=== PATIENT | male | born 1980 | race Caucasian/White ===

== ENCOUNTER → 2017-02-13 | Outpatient (CLI) | payer BC ==
--- NOTE | 2017-02-13 09:41 | FL ---
EXAMINATION TYPE: FL UGI w esophagus DATE OF EXAM: 02/13/2017 COMPARISON: NONE HISTORY: Food getting stuck in lower esophagus for past couple of years. TECHNIQUE: A double contrast UGI study is performed. A total of 30 seconds of fluoroscopic time was utilized during procedure. 21 spot procedure images were acquired. FINDINGS: Finished Goods Inspector image of the abdomen shows no gross abnormality. The esophagus shows normal motility and emptying into the stomach. No evidence of hiatal hernia or s tricture noted. The stomach shows normal distensibility, peristalsis, and mucosal folds. No evidence of any mass or ulcer disease. Single episode of gastroesophageal reflux was seen during real-time performance of sidney dy. The duodenal bulb, sweep, and proximal small bowel loops are unremarkable. IMPRESSION: Single episode of gastroesophageal reflux. No suspicious mass or stricture in distal esop hagus noted.
== END ==
LOC: RADFLMAIN 08:04
PROVIDERS: ATTEND Surgery
DX: K21.9 Gastro-esophageal reflux disease without esophagitis (principal)
CPT/HCPCS: 74240

== ENCOUNTER → 2017-02-16 | Outpatient (CLI) | payer BC ==
--- NOTE | 2017-02-16 20:10 | NM ---
EXAMINATION TYPE: NM hepatobiliary w EF DATE OF EXAM: 02/16/2017 COMPARISON: NONE HISTORY: TECHNIQUE: After the intravenous administration of 5.0 mCi Tc 99m Mebrofenin hepatobiliary scintigrap hy is performed. Immediate images post injection. FINDINGS: There is prompt opacification of the liver that shows normal size and contour. There is no focal live r defect. There is tracer in the gallbladder at 10 minutes and tracer in the small bowel at 24 minute s which excludes obstruction of the biliary tree. The post ensure images show a gallbladder ejection fraction of 41% which is above the lower limit of normal of 35%. IMPRESSION: Negative hepatobiliary scan. Gallbladder ejection fraction is 41%.
== END | disposition home or self-care (01) ==
LOC: RADNMMAIN 14:50
PROVIDERS: ATTEND Surgery
DX: R13.10 Dysphagia, unspecified (principal); K21.9 Gastro-esophageal reflux disease without esophagitis
CPT/HCPCS: 78226; A9537

== ENCOUNTER 2017-02-20 08:22 | Day surgery (SDC) | payer BC ==
[2017-02-18 16:10] VITALS: BMI 23.7
[~2017-02-20 08:22] MED LIST: LACTATED RINGERS 1,000 ML IV SCH
[2017-02-20 08:57] VITALS: RESP 16; TEMP 98.1
[2017-02-20] MEDS ORDERED: LIDOCAINE 1% 20 ML VIAL (10MG/ML) FOR IV START INTRADERMA ONE (09:17)
[2017-02-20] MEDS ORDERED: PROPOFOL 10 MG/ML 20 ML VIAL IV ONE (09:52)
--- NOTE | 2017-02-20 09:56 | P.GSHP ---
History of Present Illness H&P Date: 02/20/17 Chief Complaint: GERD, dysphagia This a 36-year-old male who has had issues with GERD and dysphagia. He presents today for EGD. His recent esophagram shows evidence of reflux. - Constitutional Constitutional: Reports as per HPI Past Medical History Additional Past Medical History / Comment(s): occasional dysphagia, feels like food gets stuck History of Any Multi-Drug Resistant Organisms: None Reported Past Surgical History: Orthopedic Surgery Additional Past Surgical History / Comment(s): knee surg., tooth implant, EGD Past Anesthesia/Blood Transfusion Reactions: No Reported Reaction Smoking Status: Never smoker - Past Family History Mother Family Medical History: No Reported History Medications and Allergies Home Medications Medication Instructions Recorded Confirmed Type Conjugated Lineoic Acid 1 tab PO DAILY 02/18/17 02/20/17 History Cyanocobalamin (Vitamin B-12) 1,000 mcg PO DAILY 02/18/17 02/20/17 History [Vitamin B-12] Fish Oil/Dha/Epa [Fish Oil 1,200 1 each PO DAILY 02/18/17 02/20/17 History mg Fish Oil] Allergies Allergy/AdvReac Type Severity Reaction Status Date / Time cefaclor [From [facility]] Allergy Rash/Hives Verified 02/20/17 08:56 Surgical - Exam Vital Signs Temp Pulse Resp BP Pulse Ox 98.1 F 59 L 16 127/75 97 02/20/17 08:55 02/20/17 08:55 02/20/17 08:55 02/20/17 08:55 02/20/17 08:55 - General well developed, well nourished - Eyes PERRL - ENT normal pinna - Neck no masses - Respiratory normal expansion - Cardiovascular Rhythm: regular - Abdomen Abdomen: soft, non tender Assessment and Plan Plan: GERD, dysphagia. We'll perform EGD.
--- NOTE | 2017-02-20 10:04 | P.OP ---
Date of Procedure: 02/20/17 Preoperative Diagnosis: GERD Postoperative Diagnosis: Antral gastritis Mild esophagitis Small sliding hiatal hernia Procedure(s) Performed: EGD Anesthesia: MAC Surgeon: Epifanio Edmond Pathology: other (Antrum, esophagus) Condition: stable Disposition: PACU Description of Procedure: The patient's placed on the endoscopy table in the lateral position. He received IV sedation. The gastroscope placed oropharynx and passed in the esophagus into the stomach. The scope was then placed through the pylorus. The first and second portion of the duodenum appeared normal. Scope was then brought back the antrum and this appeared mildly inflamed. A biopsies performed. The scope was unretroflexed and remainder of the stomach appeared normal. There was a small sliding hiatal hernia. The GE junction was at 39 7 is. The distal esophagus was minimal inflamed this biopsied performed. The proximal esophagus. Normal. Scope was withdrawn for patient.
[2017-02-20 10:37] VITALS: BP 121/62; PULSE 52
== END 2017-02-20 10:50 | disposition home or self-care (01) ==
LOC: ORWHC2ENDO 08:22
PROVIDERS: ATTEND Surgery
DX: K29.50 Unspecified chronic gastritis without bleeding (principal); K20.0 Eosinophilic esophagitis; K44.9 Diaphragmatic hernia without obstruction or gangrene; Z88.1 Allergy status to other antibiotic agents
CPT/HCPCS: 88305; 88342; 43239; J2704

== ENCOUNTER 2022-09-16 08:44 | Day surgery (SDC) | payer BC, MEDICAID ==
[2022-09-12 12:12] VITALS: BMI 24.4
[~2022-09-16 08:44] MED LIST changes: +LIDOCAINE 1% (10MG/ML) FOR IV START INTRADERMA PRN
[2022-09-16 09:12] VITALS: TEMP 96.9
[2022-09-16] MEDS ORDERED: PROPOFOL 10 MG/ML 20 ML VIAL IV ONE (09:24)
[2022-09-16] MEDS ORDERED: MIDAZOLAM 2 MG/2 ML VIAL ONE (09:24)
[2022-09-16] MEDS ORDERED: LIDOCAINE 2% INJ 20 MG/ML (2 ML VIAL) ONE (09:24)
--- NOTE | 2022-09-16 09:41 | P.PCN ---
Date of Procedure: 09/16/22 Procedure(s) Performed: BRIEF HISTORY: Patient is a 41-year-old pleasant white male scheduled for an elective colonoscopy as a part of evaluation of chronic constipation of several months duration. PROCEDURE PERFORMED: Colonoscopy. PREOPERATIVE DIAGNOSIS: Chronic constipation of several months duration. IV sedation per Anesthesia. PROCEDURE: After informed consent was obtained, the patient, was brought into the endoscopy unit. IV sedation was administered by Anesthesia under continuous monitoring. Digital rectal examination was normal. Initially the Olympus CF-160 flexible video colonoscope was then inserted in the rectum, gradually advanced into the cecum without any difficulty. Careful examination was performed as the scope was gradually being withdrawn. Ileocecal valve and the appendiceal orifice were visualized and appeared normal. Prep was excellent. Mucosa of the cecum, ascending colon, transverse colon, descending colon, sigmoid colon, and rectum appeared normal. Retroflexion was performed in the rectum and no lesions were seen. The patient tolerated the procedure well. IMPRESSION: Normal-appearing colon from rectum to cecum with no evidence of colorectal neoplasia. . RECOMMENDATIONS: Findings of this examination were discussed with the patient well as his family. He was advised to continue with MiraLAX, High-fiber diet and fiber supplements. Recommend repeat screening colonoscopy in 10 years.
[2022-09-16 09:48] VITALS: RESP 16
[2022-09-16 10:05] VITALS: BP 123/76; PULSE 47
== END 2022-09-16 10:22 | disposition home or self-care (01) ==
LOC: ORWHC2ENDO 08:44
PROVIDERS: ATTEND Internal Medicine Gastroenterology
DX: K59.09 Other constipation (principal); K21.9 Gastro-esophageal reflux disease without esophagitis; Z79.899 Other long term (current) drug therapy; Z88.5 Allergy status to narcotic agent
CPT/HCPCS: 45378; J2250; J2704; J2001